=== PATIENT | male | born 1950 | race Caucasian/White ===

== ENCOUNTER 2017-08-29 15:31 | Inpatient (IN) | payer OTHER ==
[~2017-08-29] VITALS: Ht 175.3 cm; Wt 73.7 kg
[2017-08-29] MEDS ORDERED: ASPIRIN 81 MG TABLET CHEW PO ONE (17:30)
[2017-08-29 17:36] LABS: BASOPHILS # (AUTO) 0.02 x10^3/uL (0-0.1); BASOPHILS % (AUTO) 0 % (0-1); EOSINOPHILS # (AUTO) 0.11 x10^3/uL (0-0.4); EOSINOPHILS % (AUTO) 1 % (1-7); LYMPHOCYTES # (AUTO) 1.28 x10^3/uL (1-3.4); LYMPHOCYTES % (AUTO) 13 % (22-44); MD NO; MEAN CORPUSCULAR HEMOGLOBIN 29.7 pg (27.5-34.5); MEAN CORPUSCULAR HGB CONC 32.5 g/dL (33.2-36.2); MEAN CORPUSCULAR VOLUME 91.3 fL (81-97); MEAN PLATELET VOLUME 8.5 fL (7.4-10.4); MONOCYTES # (AUTO) 0.66 x10^3/uL (0.2-0.8); MONOCYTES % (AUTO) 7 % (2-9); NEUTROPHILS # (AUTO) 8.13 x10^3/uL (1.8-6.8); NEUTROPHILS % (AUTO) 80 % (42-75); PLATELET COUNT 224 x10^3/uL (130-400); RED BLOOD COUNT 5.08 x10^6/uL (4.38-5.82); RED CELL DISTRIBUTION WIDTH 15.3 % (9.4-14.8)
[2017-08-29] MEDS ORDERED: ASPI-496 PO (17:44)
[2017-08-29] MEDS ORDERED: MORP-52 PO (17:44)
[2017-08-29] MEDS ORDERED: FURO-93 PO (17:44)
[2017-08-29] MEDS ORDERED: ALBU0.63 NEB (17:44)
[2017-08-29] MEDS ORDERED: TRAZ100T15 PO (17:44)
[2017-08-29] MEDS ORDERED: GABA300C10 PO (17:44)
[2017-08-29] MEDS ORDERED: MORP15TA PO (17:44)
[2017-08-29] MEDS ORDERED: HYDR25CA94 PO (17:44)
[2017-08-29] MEDS ORDERED: LISI2.5T PO (17:44)
[2017-08-29] MEDS ORDERED: OMEP-110 PO (17:44)
[2017-08-29 17:48] LABS: INTERNATIONAL NORMALIZED RATIO 1.11 (0.93-1.1); PROTHROMBIN TIME 11.4 Seconds (9.6-11.5)
[2017-08-29 17:50] LABS: ALBUMIN 4.1 g/dL (3.4-5.0); ANION GAP 8 mmol/L (5-15); CALCIUM 9.3 mg/dL (8.5-10.1); CHLORIDE 105 mmol/L (98-107); CREATININE 1.58 mg/dL (0.7-1.3)
[2017-08-29 17:55] LABS: TROPONIN I < 0.015 ng/mL (0.000-0.045)
[2017-08-29] MEDS ORDERED: OXYcodone IR 5MG TABLET ONE (18:05)
[2017-08-29] MEDS ORDERED: OXYcodone IR 5MG TABLET PO ONE (18:30)
[2017-08-29] MEDS ORDERED: BISACODYL 10 MG SUPP PR PRN (20:30)
[2017-08-29] MEDS ORDERED: ONDANSETRON 2MG/ML, 2ML IVPush PRN (20:30)
[2017-08-29] MEDS ORDERED: NITROGLYCERIN 0.4 MG BOTTLE (25 TABS) SL PRN (20:30)
[2017-08-29] MEDS ORDERED: POLYETHYLENE GLYCOL 17 GM PACKET PO PRN (20:30)
[2017-08-29] MEDS ORDERED: ACETAMINOPHEN 325 MG TABLET PO PRN (20:30)
[2017-08-29] MEDS: HEPARIN 5,000 UNITS/ML, 1ML SQ SCH (20:30)
[2017-08-29] MEDS ORDERED: LISINOPRIL 5 MG TABLET PO SCH (21:00)
[2017-08-29] MEDS ORDERED: LORazepam 1MG TABLET ONE (21:01)
[2017-08-29] MEDS: LORazepam 1MG TABLET PO PRN (21:02)
[2017-08-29 22:11] VITALS: BP 106/70
[2017-08-29] MEDS: GABAPENTIN 300 MG CAPSULE PO SCH (22:50)
[2017-08-29] MEDS: SODIUM CHLORIDE FLUSH 10ML SYR IVF SCH (22:51)
[2017-08-29] MEDS: TRAZODONE 100MG TABLET PO SCH (22:51)
[2017-08-29 23:55] LABS: TROPONIN I < 0.015 ng/mL (0.000-0.045)
[2017-08-30 01:50] VITALS: BP 103/70
[2017-08-30] MEDS: HEPARIN 5,000 UNITS/ML, 1ML SQ SCH ×3 (04:30→20:30)
[2017-08-30 05:29] LABS: BASOPHILS # (AUTO) 0.02 x10^3/uL (0-0.1); BASOPHILS % (AUTO) 0 % (0-1); EOSINOPHILS # (AUTO) 0.25 x10^3/uL (0-0.4); EOSINOPHILS % (AUTO) 4 % (1-7); LYMPHOCYTES % (AUTO) 19 % (22-44); MD NO; MEAN CORPUSCULAR HEMOGLOBIN 29.4 pg (27.5-34.5); MEAN CORPUSCULAR HGB CONC 32.4 g/dL (33.2-36.2); MEAN CORPUSCULAR VOLUME 90.8 fL (81-97); MEAN PLATELET VOLUME 8.6 fL (7.4-10.4); MONOCYTES # (AUTO) 0.72 x10^3/uL (0.2-0.8); MONOCYTES % (AUTO) 10 % (2-9); NEUTROPHILS # (AUTO) 4.65 x10^3/uL (1.8-6.8); NEUTROPHILS % (AUTO) 67 % (42-75); PLATELET COUNT 199 x10^3/uL (130-400); RED BLOOD COUNT 4.36 x10^6/uL (4.38-5.82); RED CELL DISTRIBUTION WIDTH 14.9 % (9.4-14.8)
[2017-08-30 05:41] LABS: CHLORIDE 105 mmol/L (98-107)
[2017-08-30 05:54] LABS: ALANINE AMINOTRANSFERASE 19 U/L (12-78); ALBUMIN 3.2 g/dL (3.4-5.0); ALKALINE PHOSPHATASE 66 U/L (45-117); ANION GAP 8 mmol/L (5-15); BILIRUBIN,TOTAL 0.4 mg/dL (0.2-1.0); CALCIUM 9.2 mg/dL (8.5-10.1); CREATININE 1.46 mg/dL (0.7-1.3); TOTAL PROTEIN 6.4 g/dL (6.4-8.2); TROPONIN I < 0.015 ng/mL (0.000-0.045)
[2017-08-30 07:18] VITALS: BP 112/75
[2017-08-30] MEDS: GABAPENTIN 300 MG CAPSULE PO SCH ×3 (08:17→21:19)
[2017-08-30] MEDS: OMEPRAZOLE 20 MG CAPSULE.DR PO SCH (08:17)
[2017-08-30] MEDS: SENNA/DOCUSATE TABLET PO SCH (08:17)
[2017-08-30] MEDS: ASPIRIN 81 MG TABLET EC PO SCH (08:17)
[2017-08-30] MEDS: morphine SULFATE 15 MG TAB.IR PO PRN ×2 (08:24→15:13)
[2017-08-30] MEDS: SODIUM CHLORIDE FLUSH 10ML SYR IVF SCH ×2 (08:28→21:00)
[2017-08-30 14:11] VITALS: BP 93/61
[2017-08-30] MEDS: LORazepam 1MG TABLET PO PRN (17:41)
[2017-08-30 20:30] VITALS: BP 107/70
[2017-08-30] MEDS: TRAZODONE 100MG TABLET PO SCH (21:19)
[2017-08-31 01:07] VITALS: BP 105/73
[2017-08-31] MEDS: HEPARIN 5,000 UNITS/ML, 1ML SQ SCH ×3 (04:30→20:30)
[2017-08-31 07:55] VITALS: BP 91/52
[2017-08-31] MEDS: SODIUM CHLORIDE FLUSH 10ML SYR IVF SCH ×2 (09:00→20:44)
[2017-08-31] MEDS: ASPIRIN 81 MG TABLET EC PO SCH (10:05)
[2017-08-31] MEDS: OMEPRAZOLE 20 MG CAPSULE.DR PO SCH (10:05)
[2017-08-31] MEDS: SENNA/DOCUSATE TABLET PO SCH (10:05)
[2017-08-31] MEDS: GABAPENTIN 300 MG CAPSULE PO SCH ×3 (10:05→20:43)
[2017-08-31] MEDS: morphine SULFATE 15 MG TAB.IR PO PRN ×3 (10:05→22:19)
[2017-08-31 12:56] VITALS: BP 107/77
[2017-08-31] MEDS: LORazepam 1MG TABLET PO PRN ×2 (17:24→23:00)
[2017-08-31 18:57] VITALS: BP 113/79
[2017-08-31] MEDS: TRAZODONE 100MG TABLET PO SCH (20:43)
[2017-09-01 02:00] VITALS: BP 110/80
[2017-09-01] MEDS: morphine SULFATE 15 MG TAB.IR PO PRN ×2 (03:08→17:18)
[2017-09-01] MEDS: HEPARIN 5,000 UNITS/ML, 1ML SQ SCH ×3 (04:30→20:21)
[2017-09-01 05:35] LABS: CHLORIDE 107 mmol/L (98-107)
[2017-09-01 05:39] LABS: ANION GAP 9 mmol/L (5-15); CALCIUM 8.5 mg/dL (8.5-10.1)
[2017-09-01 06:37] VITALS: BP 91/56
[2017-09-01] MEDS: ASPIRIN 81 MG TABLET EC PO SCH (08:51)
[2017-09-01] MEDS: OMEPRAZOLE 20 MG CAPSULE.DR PO SCH (08:52)
[2017-09-01] MEDS: SENNA/DOCUSATE TABLET PO SCH (08:52)
[2017-09-01] MEDS: GABAPENTIN 300 MG CAPSULE PO SCH ×3 (08:52→20:18)
[2017-09-01] MEDS: SODIUM CHLORIDE FLUSH 10ML SYR IVF SCH ×2 (08:52→20:18)
[2017-09-01 14:00] VITALS: BP 112/78
[2017-09-01] MEDS ORDERED: ONDANSETRON ODT 4 MG ONE (14:49)
[2017-09-01] MEDS: FUROSEMIDE 40 MG TABLET PO SCH (16:00)
[2017-09-01 18:59] VITALS: BP 103/74
[2017-09-01] MEDS: LORazepam 1MG TABLET PO PRN (20:18)
[2017-09-01] MEDS: TRAZODONE 100MG TABLET PO SCH (20:18)
[2017-09-02 03:12] VITALS: BP 93/62
[2017-09-02] MEDS: HEPARIN 5,000 UNITS/ML, 1ML SQ SCH ×3 (04:30→22:20)
[2017-09-02 05:37] LABS: CHLORIDE 105 mmol/L (98-107)
[2017-09-02 05:43] LABS: CALCIUM 8.6 mg/dL (8.5-10.1); CREATININE 1.89 mg/dL (0.7-1.3)
[2017-09-02 05:48] LABS: ANION GAP 6 mmol/L (5-15)
[2017-09-02 07:58] VITALS: BP 92/60
[2017-09-02] MEDS: SODIUM CHLORIDE FLUSH 10ML SYR IVF SCH ×2 (09:00→22:21)
[2017-09-02] MEDS: SENNA/DOCUSATE TABLET PO SCH (09:00)
[2017-09-02] MEDS: FUROSEMIDE 40 MG TABLET PO SCH (09:29)
[2017-09-02] MEDS: ASPIRIN 81 MG TABLET EC PO SCH (09:29)
[2017-09-02] MEDS: GABAPENTIN 300 MG CAPSULE PO SCH ×3 (09:29→22:20)
[2017-09-02] MEDS: OMEPRAZOLE 20 MG CAPSULE.DR PO SCH (09:29)
[2017-09-02] MEDS: morphine SULFATE 15 MG TAB.IR PO PRN ×2 (09:33→14:21)
[2017-09-02 12:17] VITALS: BP 104/72
[2017-09-02 20:20] VITALS: BP 107/72
[2017-09-02] MEDS: TRAZODONE 100MG TABLET PO SCH (22:21)
[2017-09-03 00:58] VITALS: BP 100/69
[2017-09-03] MEDS: morphine SULFATE 15 MG TAB.IR PO PRN ×2 (01:14→08:29)
[2017-09-03] MEDS: HEPARIN 5,000 UNITS/ML, 1ML SQ SCH (04:29)
[2017-09-03 07:43] VITALS: BP 101/68
[2017-09-03] MEDS: ASPIRIN 81 MG TABLET EC PO SCH (08:29)
[2017-09-03] MEDS: OMEPRAZOLE 20 MG CAPSULE.DR PO SCH (08:30)
[2017-09-03] MEDS: FUROSEMIDE 40 MG TABLET PO SCH (08:30)
[2017-09-03] MEDS: GABAPENTIN 300 MG CAPSULE PO SCH (08:30)
[2017-09-03] MEDS: SENNA/DOCUSATE TABLET PO SCH (08:31)
[2017-09-03] MEDS: SODIUM CHLORIDE FLUSH 10ML SYR IVF SCH (09:00)
== END 2017-09-03 11:15 | disposition home or self-care (01) | DRG 314 ==
LOC: ED 17:35 → EDIP 20:09 → 4WST 21:43
PROVIDERS: ADMIT Hospitalist; ATTEND Hospitalist
DX: I27.20 Pulmonary hypertension, unspecified (principal); N17.0 Acute kidney failure with tubular necrosis; J96.11 Chronic respiratory failure with hypoxia; I20.0 Unstable angina; I50.9 Heart failure, unspecified; F41.0 Panic disorder [episodic paroxysmal anxiety]; I37.1 Nonrheumatic pulmonary valve insufficiency; T45.1X5A Adverse effect of antineoplastic and immunosuppressive drugs, initial encounter; F41.1 Generalized anxiety disorder; M10.9 Gout, unspecified; Z85.048 Personal history of other malignant neoplasm of rectum, rectosigmoid junction, and anus; Z82.49 Family history of ischemic heart disease and other diseases of the circulatory system; Z82.5 Family history of asthma and other chronic lower respiratory diseases; Z87.891 Personal history of nicotine dependence; Z92.21 Personal history of antineoplastic chemotherapy; Z99.81 Dependence on supplemental oxygen; Z88.8 Allergy status to other drugs, medicaments and biological substances
CPT/HCPCS: 36415; 71045; 80048; 80053; 82040; 83735; 83880; 84484; 85025; 85610; 85730; 93005; 93306; 99285; J1644; J2405

== ENCOUNTER 2017-09-13 11:37 | Day surgery (SDC) | payer OTHER ==
[~2017-09-13] VITALS: Ht 175.3 cm; Wt 100.5 kg
[~2017-09-13 11:37] MED LIST: ALBU0.63 NEB; ASPI-496 PO; FURO-93 PO; GABA300C10 PO; HYDR25CA94 PO; LISI2.5T PO; MORP-52 PO; MORP15TA PO; OMEP-110 PO; TRAZ100T15 PO
[2017-09-13] MEDS ORDERED: DIPHENHYDRAMINE 50 MG/ML, 1ML IM ONE (14:00)
[2017-09-13] MEDS ORDERED: PLEASE ENTER HEIGHT AND WEIGHT MC SCH (14:00)
[2017-09-13 14:30] LABS: BASOPHILS # (AUTO) 0.01 x10^3/uL (0-0.1); BASOPHILS % (AUTO) 0 % (0-1); EOSINOPHILS # (AUTO) 0.07 x10^3/uL (0-0.4); EOSINOPHILS % (AUTO) 1 % (1-7); LYMPHOCYTES # (AUTO) 0.89 x10^3/uL (1-3.4); LYMPHOCYTES % (AUTO) 11 % (22-44); MD NO; MEAN CORPUSCULAR HEMOGLOBIN 29.4 pg (27.5-34.5); MEAN CORPUSCULAR HGB CONC 32.6 g/dL (33.2-36.2); MEAN CORPUSCULAR VOLUME 90.4 fL (81-97); MEAN PLATELET VOLUME 8.4 fL (7.4-10.4); MONOCYTES # (AUTO) 0.56 x10^3/uL (0.2-0.8); MONOCYTES % (AUTO) 7 % (2-9); NEUTROPHILS # (AUTO) 6.62 x10^3/uL (1.8-6.8); NEUTROPHILS % (AUTO) 81 % (42-75); PLATELET COUNT 183 x10^3/uL (130-400); RED BLOOD COUNT 4.69 x10^6/uL (4.38-5.82); RED CELL DISTRIBUTION WIDTH 15.8 % (9.4-14.8)
[2017-09-13 14:41] LABS: ANION GAP 8 mmol/L (5-15); CALCIUM 9.1 mg/dL (8.5-10.1); CHLORIDE 104 mmol/L (98-107); CREATININE 1.57 mg/dL (0.7-1.3)
[2017-09-13 14:48] VITALS: BP 109/82
[2017-09-13] MEDS ORDERED: HYDR25TA11 PO (14:59)
[2017-09-13] MEDS ORDERED: DOCU-131 PO (14:59)
[2017-09-13] MEDS ORDERED: SODI100P PO (15:00)
[2017-09-13] MEDS ORDERED: DIPHENHYDRAMINE 50 MG/ML, 1ML ONE (15:06)
[2017-09-13] MEDS ORDERED: DIPHENHYDRAMINE 50 MG/ML, 1ML IVPush ONE (15:30)
[2017-09-13] MEDS ORDERED: MIDAZOLAM 1 MG/ML, 2ML ONE (16:06)
[2017-09-13] MEDS ORDERED: FENTANYL PF 100 MCG/2ML ONE (16:06)
[2017-09-13] MEDS ORDERED: LIDOCAINE 2%, 20ML ONE (16:10)
== END 2017-09-13 18:10 | disposition home or self-care (01) ==
LOC: CACL 11:37
PROVIDERS: ATTEND Internal Medicine Cardiovascular Disease
DX: I27.29 Other secondary pulmonary hypertension (principal); Z79.82 Long term (current) use of aspirin
CPT/HCPCS: 36415; 80048; 83880; 85025; 93451; 99156; 99157; C1894; J1200; J2250; J3010; J3490

== ENCOUNTER 2017-10-09 21:18 | Inpatient (IN) | payer OTHER ==
[~2017-10-09] VITALS: Ht 175.3 cm; Wt 103.2 kg
[~2017-10-09 21:18] MED LIST changes: +DOCU-131 PO; +HYDR25TA11 PO; +SODI100P PO
[2017-10-09] MEDS ORDERED: BUME2TAB PO (21:34)
[2017-10-09] MEDS ORDERED: TRAZ50TA18 PO (21:34)
[2017-10-09] MEDS ORDERED: SODIUM CHLORIDE FLUSH 10ML SYR IVF ONE (22:00)
[2017-10-09] MEDS ORDERED: MORPHINE SULFATE 4 MG/ML, 1ML IVPush PRN (22:00)
[2017-10-09 22:13] LABS: BASOPHILS # (AUTO) 0.02 x10^3/uL (0-0.1); BASOPHILS % (AUTO) 0 % (0-1); EOSINOPHILS # (AUTO) 0.01 x10^3/uL (0-0.4); EOSINOPHILS % (AUTO) 0 % (1-7); LYMPHOCYTES # (AUTO) 0.38 x10^3/uL (1-3.4); LYMPHOCYTES % (AUTO) 5 % (22-44); MD NO; MEAN CORPUSCULAR HEMOGLOBIN 29.7 pg (27.5-34.5); MEAN CORPUSCULAR HGB CONC 32.4 g/dL (33.2-36.2); MEAN CORPUSCULAR VOLUME 91.6 fL (81-97); MEAN PLATELET VOLUME 8.6 fL (7.4-10.4); MONOCYTES # (AUTO) 0.19 x10^3/uL (0.2-0.8); MONOCYTES % (AUTO) 3 % (2-9); NEUTROPHILS % (AUTO) 92 % (42-75); PLATELET COUNT 217 x10^3/uL (130-400); RED BLOOD COUNT 5.17 x10^6/uL (4.38-5.82); RED CELL DISTRIBUTION WIDTH 16.5 % (9.4-14.8)
[2017-10-09 22:24] LABS: INTERNATIONAL NORMALIZED RATIO 1.25 (0.93-1.1); PROTHROMBIN TIME 12.9 Seconds (9.6-11.5)
[2017-10-09 22:27] LABS: ALANINE AMINOTRANSFERASE 52 U/L (12-78); ALBUMIN 4.5 g/dL (3.4-5.0); ANION GAP 8 mmol/L (5-15); CALCIUM 9.5 mg/dL (8.5-10.1); CHLORIDE 98 mmol/L (98-107)
[2017-10-09 22:31] LABS: ALKALINE PHOSPHATASE 98 U/L (45-117); BILIRUBIN,TOTAL 1.1 mg/dL (0.2-1.0); TOTAL PROTEIN 8.4 g/dL (6.4-8.2); TROPONIN I 0.081 ng/mL (0.000-0.045)
[2017-10-09] MEDS ORDERED: FUROSEMIDE 40 MG/4 ML ONE (22:54)
[2017-10-09] MEDS ORDERED: ASPIRIN 325 MG TABLET ONE (22:54)
[2017-10-09] MEDS ORDERED: ASPIRIN 325 MG TABLET PO ONE (23:00)
[2017-10-09] MEDS ORDERED: FUROSEMIDE 40 MG/4 ML IV ONE (23:00)
[2017-10-10] MEDS ORDERED: ENALAPRILAT 1.25 MG/ML, 2ML IVPush PRN
[2017-10-10] MEDS ORDERED: hydrALAzine 20 MG/ML, 1ML IVPush PRN
[2017-10-10] MEDS ORDERED: LABETALOL 5MG/ML, 20ML IVPush PRN
[2017-10-10] MEDS ORDERED: POLYETHYLENE GLYCOL 17 GM PACKET PO PRN
[2017-10-10] MEDS ORDERED: OXYcodone IR 5MG TABLET PO PRN
[2017-10-10] MEDS ORDERED: morphine SULFATE 10 MG/ML, 1ML IVPush PRN
[2017-10-10] MEDS ORDERED: BISACODYL 10 MG SUPP PR PRN
[2017-10-10] MEDS ORDERED: ONDANSETRON 2MG/ML, 2ML IVPush PRN
[2017-10-10] MEDS ORDERED: ACETAMINOPHEN 325 MG TABLET PO PRN
[2017-10-10 00:24] VITALS: BP 137/90
[2017-10-10 00:26] LABS: FREE T4 (FREE THYROXINE) 1.37 ng/dL (0.76-1.46); THYROID STIMULATING HORMONE 1.6 mIU/L (0.358-3.740)
[2017-10-10] MEDS: MORPHINE MC SCH ×2 (00:30→08:24)
[2017-10-10] MEDS: OXYCODONE MC SCH ×2 (00:30→08:24)
[2017-10-10 00:34] LABS: HEMOGLOBIN A1C 6.5 % (4.2-6.3)
[2017-10-10] MEDS: TRAZODONE 50MG TABLET PO SCH ×2 (00:47→21:13)
[2017-10-10] MEDS: ENOXAPARIN 40 MG/0.4 ML SQ SCH ×2 (00:50→23:56)
[2017-10-10 03:41] LABS: MICROSCOPIC NOT IND
[2017-10-10 03:54] LABS: CULTURE INDICATED? NO
[2017-10-10 04:00] VITALS: BP 110/72
[2017-10-10 04:42] LABS: MEAN CORPUSCULAR HEMOGLOBIN 29.2 pg (27.5-34.5); MEAN CORPUSCULAR HGB CONC 32.2 g/dL (33.2-36.2); MEAN CORPUSCULAR VOLUME 90.7 fL (81-97); MEAN PLATELET VOLUME 8.5 fL (7.4-10.4); PLATELET COUNT 180 x10^3/uL (130-400); RED BLOOD COUNT 4.66 x10^6/uL (4.38-5.82); RED CELL DISTRIBUTION WIDTH 16.4 % (9.4-14.8)
[2017-10-10 05:00] LABS: BASOPHILS % (AUTO) 0 % (0-1); EOSINOPHILS % (AUTO) 0 % (1-7); LYMPHOCYTES # (AUTO) 0.25 x10^3/uL (1-3.4); LYMPHOCYTES % (AUTO) 10 % (22-44); MD SCAN; MONOCYTES # (AUTO) 0.03 x10^3/uL (0.2-0.8); MONOCYTES % (AUTO) 1 % (2-9); NEUTROPHILS # (AUTO) 2.23 x10^3/uL (1.8-6.8); NEUTROPHILS % (AUTO) 89 % (42-75)
[2017-10-10 05:49] LABS: ALANINE AMINOTRANSFERASE 42 U/L (12-78); ALBUMIN 3.5 g/dL (3.4-5.0); ALKALINE PHOSPHATASE 78 U/L (45-117); ANION GAP 10 mmol/L (5-15); CALCIUM 8.6 mg/dL (8.5-10.1); CHLORIDE 99 mmol/L (98-107); CHOL/HDL RATIO 2.2; CHOLESTEROL, TOTAL 71 mg/dL (140-239); CREATININE 2.03 mg/dL (0.7-1.3); HDL CHOL % 45 % (26-37); HDL CHOLESTEROL (DIRECT) 32 mg/dL (40-60); LDL CHOLESTEROL,CALCULATED 30 mg/dL (54-169); LDL/HDL RATIO 0.9 (0.5-3.0); TOTAL PROTEIN 6.5 g/dL (6.4-8.2); TRIGLYCERIDES 46 mg/dL (50-200); VLDL CHOLESTEROL 9 mg/dL (0-25)
[2017-10-10] MEDS: [UNRECOGNIZED DRUG - OTHER] PO SCH (08:24)
[2017-10-10] MEDS: PREVIDENT PO SCH (08:24)
[2017-10-10] MEDS: SENNA/DOCUSATE TABLET PO SCH (09:00)
[2017-10-10] MEDS ORDERED: DOCUSATE 100 MG CAPSULE PO SCH (09:00)
[2017-10-10] MEDS: GABAPENTIN 300 MG CAPSULE PO SCH ×3 (09:55→21:13)
[2017-10-10] MEDS: ASPIRIN 81 MG TABLET EC PO SCH (09:55)
[2017-10-10] MEDS: BUMETANIDE 1 MG TABLET PO SCH (09:55)
[2017-10-10] MEDS: morphine SULFATE 15 MG TAB.IR PO PRN ×3 (10:13→23:56)
[2017-10-11] MEDS: ENOXAPARIN 40 MG/0.4 ML SQ SCH ×2 (00:01→23:44)
[2017-10-11 04:30] LABS: BASOPHILS % (AUTO) 0 % (0-1); EOSINOPHILS % (AUTO) 0 % (1-7); LYMPHOCYTES # (AUTO) 0.42 x10^3/uL (1-3.4); LYMPHOCYTES % (AUTO) 5 % (22-44); MD NO; MEAN CORPUSCULAR HEMOGLOBIN 29.2 pg (27.5-34.5); MEAN CORPUSCULAR HGB CONC 31.9 g/dL (33.2-36.2); MEAN CORPUSCULAR VOLUME 91.4 fL (81-97); MEAN PLATELET VOLUME 8.5 fL (7.4-10.4); MONOCYTES # (AUTO) 0.49 x10^3/uL (0.2-0.8); MONOCYTES % (AUTO) 6 % (2-9); NEUTROPHILS # (AUTO) 7.37 x10^3/uL (1.8-6.8); NEUTROPHILS % (AUTO) 89 % (42-75); PLATELET COUNT 174 x10^3/uL (130-400); RED BLOOD COUNT 4.24 x10^6/uL (4.38-5.82); RED CELL DISTRIBUTION WIDTH 16.7 % (9.4-14.8)
[2017-10-11 04:33] LABS: ALBUMIN 3.1 g/dL (3.4-5.0); ANION GAP 4 mmol/L (5-15); CALCIUM 8.3 mg/dL (8.5-10.1); CHLORIDE 102 mmol/L (98-107)
[2017-10-11 04:37] LABS: ALANINE AMINOTRANSFERASE 31 U/L (12-78); ALKALINE PHOSPHATASE 72 U/L (45-117); BILIRUBIN,TOTAL 0.5 mg/dL (0.2-1.0); TOTAL PROTEIN 6.2 g/dL (6.4-8.2)
[2017-10-11] MEDS: ASPIRIN 81 MG TABLET EC PO SCH (07:55)
[2017-10-11] MEDS: SENNA/DOCUSATE TABLET PO SCH (07:56)
[2017-10-11] MEDS: GABAPENTIN 300 MG CAPSULE PO SCH ×3 (07:56→20:32)
[2017-10-11] MEDS: BUMETANIDE 1 MG TABLET PO SCH (07:56)
[2017-10-11] MEDS: DOCUSATE 100 MG CAPSULE PO SCH (07:56)
[2017-10-11] MEDS: morphine SULFATE 15 MG TAB.IR PO PRN ×3 (07:58→21:39)
[2017-10-11] MEDS: [UNRECOGNIZED DRUG - OTHER] PO SCH ×2 (07:59→21:00)
[2017-10-11] MEDS: PREVIDENT PO SCH ×2 (07:59→21:00)
[2017-10-11] MEDS: TRAZODONE 50MG TABLET PO SCH (21:39)
[2017-10-11] MEDS ORDERED: ALBUTEROL/IPRATROPIUM 2.5MG/0.5MG, 3 ML ONE (22:37)
[2017-10-12 04:25] LABS: BASOPHILS % (AUTO) 0 % (0-1); EOSINOPHILS # (AUTO) 0.26 x10^3/uL (0-0.4); EOSINOPHILS % (AUTO) 3 % (1-7); LYMPHOCYTES # (AUTO) 0.95 x10^3/uL (1-3.4); LYMPHOCYTES % (AUTO) 11 % (22-44); MD NO; MEAN CORPUSCULAR HEMOGLOBIN 30.2 pg (27.5-34.5); MEAN CORPUSCULAR HGB CONC 32.5 g/dL (33.2-36.2); MEAN CORPUSCULAR VOLUME 92.7 fL (81-97); MEAN PLATELET VOLUME 8.4 fL (7.4-10.4); MONOCYTES # (AUTO) 0.48 x10^3/uL (0.2-0.8); MONOCYTES % (AUTO) 6 % (2-9); NEUTROPHILS # (AUTO) 6.79 x10^3/uL (1.8-6.8); NEUTROPHILS % (AUTO) 80 % (42-75); PLATELET COUNT 184 x10^3/uL (130-400); RED BLOOD COUNT 4.64 x10^6/uL (4.38-5.82); RED CELL DISTRIBUTION WIDTH 17.1 % (9.4-14.8)
[2017-10-12 04:33] LABS: ALANINE AMINOTRANSFERASE 33 U/L (12-78); ALBUMIN 3.5 g/dL (3.4-5.0); ANION GAP 8 mmol/L (5-15); CALCIUM 8.6 mg/dL (8.5-10.1); CHLORIDE 99 mmol/L (98-107); CREATININE 1.76 mg/dL (0.7-1.3)
[2017-10-12 04:35] LABS: ALKALINE PHOSPHATASE 75 U/L (45-117); BILIRUBIN,TOTAL 0.4 mg/dL (0.2-1.0); TOTAL PROTEIN 6.7 g/dL (6.4-8.2)
[2017-10-12] MEDS: BUMETANIDE 1 MG TABLET PO SCH (08:38)
[2017-10-12] MEDS: GABAPENTIN 300 MG CAPSULE PO SCH ×3 (08:38→20:40)
[2017-10-12] MEDS: SENNA/DOCUSATE TABLET PO SCH (08:38)
[2017-10-12] MEDS: ASPIRIN 81 MG TABLET EC PO SCH (08:38)
[2017-10-12] MEDS: DOCUSATE 100 MG CAPSULE PO SCH (08:39)
[2017-10-12] MEDS: morphine SULFATE 15 MG TAB.IR PO PRN ×3 (08:39→22:24)
[2017-10-12] MEDS: SILDENAFIL 20 MG TABLET PO SCH ×3 (12:48→20:40)
[2017-10-12] MEDS: TRAZODONE 50MG TABLET PO SCH (21:58)
[2017-10-12] MEDS: ENOXAPARIN 40 MG/0.4 ML SQ SCH (23:48)
[2017-10-13 04:09] VITALS: BP 99/56
[2017-10-13 04:26] LABS: ANION GAP 5 mmol/L (5-15); CALCIUM 8.1 mg/dL (8.5-10.1); CHLORIDE 99 mmol/L (98-107); CREATININE 1.59 mg/dL (0.7-1.3)
[2017-10-13] MEDS: SILDENAFIL 20 MG TABLET PO SCH ×3 (08:53→20:41)
[2017-10-13] MEDS: morphine SULFATE 15 MG TAB.IR PO PRN ×3 (08:53→21:26)
[2017-10-13] MEDS: BUMETANIDE 1 MG TABLET PO SCH (08:53)
[2017-10-13] MEDS: DOCUSATE 100 MG CAPSULE PO SCH (08:53)
[2017-10-13] MEDS: GABAPENTIN 300 MG CAPSULE PO SCH ×3 (08:53→20:41)
[2017-10-13] MEDS: SENNA/DOCUSATE TABLET PO SCH (08:53)
[2017-10-13] MEDS: ASPIRIN 81 MG TABLET EC PO SCH (08:53)
[2017-10-13] MEDS: [UNRECOGNIZED DRUG - OTHER] PO SCH (08:53)
[2017-10-13] MEDS: PREVIDENT PO SCH (08:53)
[2017-10-13] MEDS ORDERED: LORazepam 2 MG/ML, 1ML ONE (10:48)
[2017-10-13] MEDS: LORazepam 2 MG/ML, 1ML IVPush PRN (10:51)
[2017-10-13] MEDS: TRAZODONE 50MG TABLET PO SCH (21:26)
[2017-10-14] MEDS: ENOXAPARIN 40 MG/0.4 ML SQ SCH ×2 (00:13→23:55)
[2017-10-14] MEDS: LORazepam 2 MG/ML, 1ML IVPush PRN ×2 (02:20→20:56)
[2017-10-14] MEDS: morphine SULFATE 15 MG TAB.IR PO PRN ×2 (06:12→19:22)
[2017-10-14] MEDS: DOCUSATE 100 MG CAPSULE PO SCH (08:09)
[2017-10-14] MEDS: GABAPENTIN 300 MG CAPSULE PO SCH ×3 (08:09→20:53)
[2017-10-14] MEDS: ASPIRIN 81 MG TABLET EC PO SCH (08:09)
[2017-10-14] MEDS: SILDENAFIL 20 MG TABLET PO SCH ×3 (08:09→20:53)
[2017-10-14] MEDS: BUMETANIDE 1 MG TABLET PO SCH (08:09)
[2017-10-14] MEDS: SENNA/DOCUSATE TABLET PO SCH (08:10)
[2017-10-14] MEDS: PREVIDENT PO SCH (08:19)
[2017-10-14] MEDS: [UNRECOGNIZED DRUG - OTHER] PO SCH (08:19)
[2017-10-14] MEDS: TRAZODONE 50MG TABLET PO SCH (20:53)
[2017-10-15] MEDS: morphine SULFATE 15 MG TAB.IR PO PRN ×3 (02:36→22:54)
[2017-10-15] MEDS: LORazepam 2 MG/ML, 1ML IVPush PRN ×2 (06:40→22:53)
[2017-10-15] MEDS: ASPIRIN 81 MG TABLET EC PO SCH (07:58)
[2017-10-15] MEDS: PREVIDENT PO SCH (07:58)
[2017-10-15] MEDS: DOCUSATE 100 MG CAPSULE PO SCH (07:58)
[2017-10-15] MEDS: GABAPENTIN 300 MG CAPSULE PO SCH ×3 (07:58→20:51)
[2017-10-15] MEDS: SENNA/DOCUSATE TABLET PO SCH (07:58)
[2017-10-15] MEDS: SILDENAFIL 20 MG TABLET PO SCH ×3 (07:58→20:51)
[2017-10-15] MEDS: [UNRECOGNIZED DRUG - OTHER] PO SCH (07:58)
[2017-10-15] MEDS: BUMETANIDE 1 MG TABLET PO SCH (07:58)
[2017-10-15] MEDS: TRAZODONE 50MG TABLET PO SCH (20:51)
[2017-10-15] MEDS: ENOXAPARIN 40 MG/0.4 ML SQ SCH (22:59)
[2017-10-16] MEDS: BUMETANIDE 1 MG TABLET PO SCH (08:01)
[2017-10-16] MEDS: ASPIRIN 81 MG TABLET EC PO SCH (08:01)
[2017-10-16] MEDS: SILDENAFIL 20 MG TABLET PO SCH ×3 (08:01→21:26)
[2017-10-16] MEDS: DOCUSATE 100 MG CAPSULE PO SCH (08:01)
[2017-10-16] MEDS: morphine SULFATE 15 MG TAB.IR PO PRN ×3 (08:02→22:07)
[2017-10-16] MEDS: [UNRECOGNIZED DRUG - OTHER] PO SCH (08:02)
[2017-10-16] MEDS: SENNA/DOCUSATE TABLET PO SCH (08:02)
[2017-10-16] MEDS: GABAPENTIN 300 MG CAPSULE PO SCH ×3 (08:02→21:26)
[2017-10-16] MEDS: PREVIDENT PO SCH (08:02)
[2017-10-16] MEDS ORDERED: TRAZODONE 50MG TABLET PO PRN (08:30)
[2017-10-16 08:41] LABS: ANION GAP 9 mmol/L (5-15); CALCIUM 8.5 mg/dL (8.5-10.1); CHLORIDE 102 mmol/L (98-107); CREATININE 1.45 mg/dL (0.7-1.3)
[2017-10-16 11:07] LABS: BASOPHILS # (AUTO) 0.04 x10^3/uL (0-0.1); BASOPHILS % (AUTO) 1 % (0-1); EOSINOPHILS # (AUTO) 0.32 x10^3/uL (0-0.4); EOSINOPHILS % (AUTO) 5 % (1-7); LYMPHOCYTES # (AUTO) 0.89 x10^3/uL (1-3.4); LYMPHOCYTES % (AUTO) 13 % (22-44); MD NO; MEAN CORPUSCULAR HEMOGLOBIN 29.2 pg (27.5-34.5); MEAN CORPUSCULAR HGB CONC 32.2 g/dL (33.2-36.2); MEAN CORPUSCULAR VOLUME 90.7 fL (81-97); MEAN PLATELET VOLUME 8.5 fL (7.4-10.4); MONOCYTES # (AUTO) 0.57 x10^3/uL (0.2-0.8); MONOCYTES % (AUTO) 9 % (2-9); NEUTROPHILS % (AUTO) 72 % (42-75); PLATELET COUNT 165 x10^3/uL (130-400); RED BLOOD COUNT 4.38 x10^6/uL (4.38-5.82); RED CELL DISTRIBUTION WIDTH 17.1 % (9.4-14.8)
[2017-10-16] MEDS: LORazepam 2 MG/ML, 1ML IVPush PRN (22:07)
[2017-10-17] MEDS: morphine SULFATE 15 MG TAB.IR PO PRN (06:00)
[2017-10-17] MEDS: PREVIDENT PO SCH (09:00)
[2017-10-17] MEDS: [UNRECOGNIZED DRUG - OTHER] PO SCH (09:00)
[2017-10-17] MEDS: DOCUSATE 100 MG CAPSULE PO SCH (09:09)
[2017-10-17] MEDS: ENOXAPARIN 40 MG/0.4 ML SQ SCH (09:09)
[2017-10-17] MEDS: SENNA/DOCUSATE TABLET PO SCH (09:10)
[2017-10-17] MEDS: BUMETANIDE 1 MG TABLET PO SCH (09:11)
[2017-10-17] MEDS: GABAPENTIN 300 MG CAPSULE PO SCH ×2 (09:11→16:00)
[2017-10-17] MEDS: ASPIRIN 81 MG TABLET EC PO SCH (09:11)
[2017-10-17] MEDS: SILDENAFIL 20 MG TABLET PO SCH ×2 (09:13→16:00)
[2017-10-17] MEDS ORDERED: SILD20TA PO (13:45)
== END 2017-10-17 17:24 | disposition home or self-care (01) | DRG 196 ==
LOC: ED 22:59 → EDIP 23:25 → CCU 10-10 00:21
PROVIDERS: ADMIT Internal Medicine; ATTEND Internal Medicine
DX: J84.9 Interstitial pulmonary disease, unspecified (principal); N17.0 Acute kidney failure with tubular necrosis; J96.21 Acute and chronic respiratory failure with hypoxia; I26.99 Other pulmonary embolism without acute cor pulmonale; Z76.82 Awaiting organ transplant status; I27.20 Pulmonary hypertension, unspecified; R60.0 Localized edema; N18.3 Chronic kidney disease, stage 3 (moderate); B19.20 Unspecified viral hepatitis C without hepatic coma; I27.21 Secondary pulmonary arterial hypertension; M10.9 Gout, unspecified; Z82.49 Family history of ischemic heart disease and other diseases of the circulatory system; Z82.5 Family history of asthma and other chronic lower respiratory diseases; Z85.048 Personal history of other malignant neoplasm of rectum, rectosigmoid junction, and anus; Z92.21 Personal history of antineoplastic chemotherapy; Z87.891 Personal history of nicotine dependence; Z99.81 Dependence on supplemental oxygen
CPT/HCPCS: 36415; 36600; 71045; 80048; 80053; 80061; 81003; 82803; 83036; 83605; 83735; 83880; 84100; 84439; 84443; 84484; 85025; 85610; 85730; 87040; 87081; 93005; 96374; J1650; J1940; J2060; J2270; Q0177